=== PATIENT | female | born 1940 | race Two or more races ===

== ENCOUNTER 2016-09-13 10:03 | Emergency (ER) | payer OTHER, MEDICAID ==
[~2016-09-13] VITALS: Ht 149.9 cm; Wt 52.6 kg
[~2016-09-13 10:03] MED LIST: ALEN70TA55; HYDR25TA4; METH2.5T3; OMEPRAZOLE CAP 20MG; POTA-167; SIMV-8; TRAM50TA2
[2016-09-13 10:12] VITALS: BP 140/55
== END 2016-09-13 12:46 | disposition home or self-care (01) ==
LOC: ER 10:03
DX: S76.012A Strain of muscle, fascia and tendon of left hip, initial encounter (principal); M17.12 Unilateral primary osteoarthritis, left knee; E78.5 Hyperlipidemia, unspecified; M19.90 Unspecified osteoarthritis, unspecified site; Z88.6 Allergy status to analgesic agent; W01.0XXA Fall on same level from slipping, tripping and stumbling without subsequent striking against object, initial encounter; Y93.01 Activity, walking, marching and hiking; Y99.8 Other external cause status; Y92.89 Other specified places as the place of occurrence of the external cause
CPT/HCPCS: 73502; 73562; 73610

== ENCOUNTER 2016-11-23 10:33 | Emergency (ER) | payer OTHER, MEDICAID ==
[~2016-11-23] VITALS: Ht 149.9 cm; Wt 532.1 kg
[2016-11-23 11:03] VITALS: BP 137/61
== END 2016-11-23 12:48 | disposition home or self-care (01) ==
LOC: ER 10:33
DX: L60.0 Ingrowing nail (principal); Z88.8 Allergy status to other drugs, medicaments and biological substances

== ENCOUNTER 2016-12-14 09:50 | Emergency (ER) | payer OTHER, MEDICAID ==
[~2016-12-14] VITALS: Ht 149.9 cm; Wt 54.9 kg
[2016-12-14 10:38] VITALS: BP 138/72
== END 2016-12-14 11:35 | disposition home or self-care (01) ==
LOC: ER 09:50
DX: L60.0 Ingrowing nail (principal); E78.5 Hyperlipidemia, unspecified; M19.90 Unspecified osteoarthritis, unspecified site; Z88.8 Allergy status to other drugs, medicaments and biological substances; Z79.899 Other long term (current) drug therapy
CPT/HCPCS: 11730

== ENCOUNTER 2017-02-22 16:09 | Emergency (ER) | payer OTHER, MEDICAID ==
[~2017-02-22] VITALS: Ht 149.9 cm; Wt 72.6 kg
[2017-02-22 17:26] VITALS: BP 130/54
== END 2017-02-22 17:52 | disposition home or self-care (01) ==
LOC: ER 16:09
DX: S01.81XA Laceration without foreign body of other part of head, initial encounter (principal); M19.90 Unspecified osteoarthritis, unspecified site; E78.5 Hyperlipidemia, unspecified; Z79.899 Other long term (current) drug therapy; Z88.8 Allergy status to other drugs, medicaments and biological substances; W01.0XXA Fall on same level from slipping, tripping and stumbling without subsequent striking against object, initial encounter; Y93.89 Activity, other specified; Y92.89 Other specified places as the place of occurrence of the external cause; Y99.8 Other external cause status
CPT/HCPCS: 12013

== ENCOUNTER 2017-11-22 16:30 | Emergency (ER) | payer OTHER, MEDICAID ==
[~2017-11-22] VITALS: Ht 149.9 cm; Wt 51.7 kg
[~2017-11-22 16:30] MED LIST changes: +ALEN1TAB32; -ALEN70TA55
[2017-11-22 16:55] VITALS: BP 126/69
[2017-11-22] MEDS ORDERED: TRIAMCINOLONE 40MG/ML 1ML VIAL IM ONE (19:15)
[2017-11-22] MEDS ORDERED: HYDROcodone-ACET 7.5/325MG TAB PO ONE (19:15)
== END 2017-11-22 19:25 | disposition home or self-care (01) ==
LOC: ER 16:32
DX: S80.02XA Contusion of left knee, initial encounter (principal); S00.83XA Contusion of other part of head, initial encounter; G44.209 Tension-type headache, unspecified, not intractable; M62.838 Other muscle spasm; Z88.8 Allergy status to other drugs, medicaments and biological substances; Z79.899 Other long term (current) drug therapy; W10.8XXA Fall (on) (from) other stairs and steps, initial encounter; Y93.89 Activity, other specified; Y99.8 Other external cause status; Y92.89 Other specified places as the place of occurrence of the external cause
CPT/HCPCS: 70450; 73564; 73630; 93005; 96372; 99284; J3301

== ENCOUNTER 2021-07-12 20:12 | Emergency (ER) | payer OTHER, MEDICAID ==
[~2021-07-12] VITALS: Ht 149.9 cm; Wt 51.3 kg
[~2021-07-12 20:12] MED LIST changes: -ALEN1TAB32; +ALEN70TA74; +METH2.5T; -METH2.5T3
[2021-07-12 20:25] VITALS: BP 143/68
[2021-07-12] MEDS ORDERED: COROSUS LEFT EAR (20:53)
== END 2021-07-12 22:52 | disposition home or self-care (01) ==
LOC: ER 20:12
DX: H60.92 Unspecified otitis externa, left ear (principal); E78.5 Hyperlipidemia, unspecified; Z88.8 Allergy status to other drugs, medicaments and biological substances

== ENCOUNTER 2021-07-24 14:39 | Emergency (ER) | payer OTHER, MEDICAID ==
[~2021-07-24] VITALS: Ht 154.9 cm; Wt 59.0 kg
[~2021-07-24 14:39] MED LIST changes: +COROSUS LEFT EAR
[2021-07-24 15:47] VITALS: BP 125/85
[2021-07-24] MEDS ORDERED: CIPR1SUS8 OT (16:02)
[2021-07-24] MEDS ORDERED: AMOX-277 PO (16:02)
[2021-07-24] MEDS ORDERED: LORATADINE 10 MG TAB PO ONE (16:15)
== END 2021-07-24 16:58 | disposition home or self-care (01) ==
LOC: ER 14:39
DX: H60.92 Unspecified otitis externa, left ear (principal); R21 Rash and other nonspecific skin eruption; E78.5 Hyperlipidemia, unspecified; Z79.899 Other long term (current) drug therapy; Z79.1 Long term (current) use of non-steroidal anti-inflammatories (NSAID); Z88.8 Allergy status to other drugs, medicaments and biological substances

== ENCOUNTER 2021-11-12 12:10 | Emergency (ER) | payer OTHER, MEDICAID ==
[~2021-11-12 12:10] MED LIST changes: +AMOX-277 PO; +CIPR1SUS8 OT
== END 2021-11-12 12:57 | disposition left against medical advice (07) ==
LOC: ER 12:10
DX: H92.03 Otalgia, bilateral (principal); Z53.21 Procedure and treatment not carried out due to patient leaving prior to being seen by health care provider

== ENCOUNTER 2024-08-14 12:34 | Emergency (ER) | payer OTHER, MEDICAID ==
[~2024-08-14] VITALS: Ht 149.9 cm; Wt 41.7 kg
[~2024-08-14 12:34] MED LIST changes: -AMOX-277 PO; +AMOX875T4 PO; -POTA-167; +POTA-211; -SIMV-8; +SIMV20TA20
[2024-08-14 14:06] LABS: Urine Bacteria FEW /hpf (None Seen); Urine Blood Negative /uL (Negative); Urine Clarity Clear (Clear); Urine Color Light-Yellow (Yellow); Urine Protein, UAD Negative (Negative); Urine Specific Gravity 1.017 (1.001-1.035); Urine Squamous Epithelial Cell FEW /hpf (<5); Urine Urobilinogen Normal (Negative); Urine WBC 1 /HPF (0-5); Urine pH 6.5 (5.0-9.0)
--- NOTE | 2024-08-14 14:59 | ED.PDOC ---
History of Present Illness HPI Comments 84-year-old female presents to the ER with prior medical history of arthritis, high lipids and the chief complaint of urinary. Patient reports on having infection urine which has cleared now but was informed that she has a a bladder from now. Patient has frequency as well as burning during urination. Denies chills, fever, N/V/D, SOB, CP. No other associated symptoms, modifiers, recent injuries or sick contacts present at this time. Chief Complaint: Urinary Time Seen by MD: 14:00 Primary Care Provider: STEPHEN Reviewed Notes: Nurses Notes, Medications, Allergies Allergies: Coded Allergies: Naproxen (Verified Allergy, Unknown, 09/13/16) Home Meds Active Scripts Amoxicillin & Pot Clavulanate (Amoxicillin/Potassium Cla) 875 Mg Tab, 1 TAB PO BID for 5 Days, #10 TAB 0 Refills Prov:MERA MARTINEZ 07/24/21 Ciprofloxacin-Dexamethasone (Ciprofloxacin/Dexamethaso 0.3-0.1 %) 1 Tawnya Tawnya, 1 TAWNYA OT BID for 10 Days, #10 ML 0 Refills 4 drops twice a day for 10 days Prov:MERA MARTINEZ 07/24/21 Hbqgcfju-Fgsmjhpzu-Ha (Otic) (Cortisporin Otic Susp) [address], 4 DROP LEFT EAR TID for 7 Days, #10 ML Prov:SANDEEP GAN DO 07/12/21 Reported Medications [Omeprazole Cap 20MG] No Conflict Check 03/21/12 [Tramadol Hcl50 Mg] (Tramadol Hcl) 50 MG TAB No Conflict Check, MG 03/21/12 [Klor-Con 1010 Meq] (Klor-Con 10) 10 MEQ TAB No Conflict Check, MEQ 03/21/12 [Rvqiovgkcqjcwlg28 Mg] (Hydrochlorothiazide) 25 MG TAB No Conflict Check, MG 03/21/12 [Alendronate Sod70 Mg] (Alendronate Sodium) 70 MG TAB No Conflict Check, MG 03/21/12 [Methotrexate2.5 Mg] (Methotrexate) 2.5 MG TAB No Conflict Check, MG 03/21/12 [Rtqhuyhyzfh98 Mg] (Simvastatin) 20 MG TAB No Conflict Check, MG 03/21/12 Information Source: Patient Mode of Arrival: Ambulatory Severity: Moderate Timing: Days Duration: Since onset, Days Prehospital treatment: None Past Medical History PAST MEDICAL HISTORY: Arthritis, High Lipids Surgical History: Denies all surgeries DIRECTOR OF GLOBAL SALES History: No Pertinent DIRECTOR OF GLOBAL SALES History Family History Family History: Reviewed,noncontributory to illness, Unknown Social History Smoker: Non-Smoker Alcohol: Denies ETOH Use Drugs: Denies Drug Use Lives In: Home Constitutional: denies: chills, diaphoresis, fatigue, fever, malaise, sweats, weakness, others EENTM: denies: blurred vision, double vision, ear bleeding, ear discharge, ear drainage, ear pain, ear ringing, eye pain, eye redness, hearing loss, mouth pain, mouth swelling, nasal discharge, nose bleeding, nose congestion, nose pain, photophobia, tearing, throat pain, throat swelling, voice changes, others Respiratory: denies: cough, hemoptysis, orthopnea, SOB at rest, shortness of breath, SOB with excertion, stridor, wheezing, others Cardiovascular: denies: chest pain, dizzy spells, diaphoresis, Dyspnea on exertion, edema, irregular heart beat, left arm pain, lightheadedness, palpitations, PND, syncope, others Gastrointestinal: denies: abdomen distended, abdominal pain, blood streaked bowels, constipated, diarrhea, dysphagia, difficulty swallowing, hematemesis, melena, nausea, poor appetite, poor fluid intake, rectal bleeding, rectal pain, vomiting, others Genitourinary: reports: burning, frequency; denies: abnormal vagina bleeding, dyspareunia, dysuria, flank pain, hematuria, incontinence, pain, , vagina discharge, urgency, others Neurological: denies: dizziness, fainting, headache, left sided numbness, left sided weakness, numbness, paresthesia, pre-existing deficit, right sided numbness, right sided weakness, seizure, speech problems, tingling, tremors, weakness, others Musculoskeletal: denies: back pain, gout, joint pain, joint swelling, muscle pain, muscle stiffness, neck pain, others Integumetry: denies: bruises, change in color, change in hair/nails, dryness, laceration, lesions, lumps, rash, wounds, others Allergic/Immunocompromised: denies: Difficulty Healing, Frequent Infections, Hives, Itching, others Hematologic/Lymphatic: denies: anemia, blood clots, easy bleeding, easy bruising, swollen glands, others Endocrine: denies: excessive hunger, excessive sweating, excessive thirst, excessive urination, flushing, intolerance to cold, intolerance to heat, unexplained weight gain, unexplained weight loss, others Psychiatric: denies: anxiety, bipolar disorder, depression, hopeless, panic disorder, schizophrenia, sleepless, suicidal, others All Other Systems: Reviewed and Negative Physical Exam General Appearance: No Apparent Distress, Normal HEENT: Normal ENT Inspection, Pharynx Normal, TMs Normal Neck: Full Range of Motion, Non-Tender, Normal, Normal Inspection Respiratory: Chest Non-Tender, Lungs Clear, No Accessory Muscle Use, No Respiratory Distress, Normal Breath Sounds Cardiovascular: No Edema, No JVD, No Murmur, No Gallop, Normal Peripheral Pulses, Regular Rate/Rhythm Breast Exam: Deferred Gastrointestinal: No Organomegaly, Non Tender, No Pulsatile Mass, Normal Bowel Sounds, Soft Genitalia: Deferred Pelvic: Deferred Rectal: Deferred Extremities: No calf tenderness, Normal capillary refill, Normal inspection, Normal range of motion, Non-tender, No pedal edema Musculoskeletal : Apperance: Normal Neurologic: Alert, 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 Was a procedure done?: No Differential Dx Considerations may include: uti, vaginal yeast infection, dysuria X-Ray, Labs, Meds, VS Vital Signs Date Time Temp Pulse Resp B/P (MAP) Pulse Ox O2 Delivery O2 Flow Rate FiO2 08/14/24 16:57 98.5 90 14 149/58 (88) 97 98.5 08/14/24 13:08 98.0 104 13 135/67 (89) 96 98.0 Lab Test 08/14/24 13:13 Range/Units Urine Color Light-yellow Yellow Urine Clarity Clear Clear Urine pH 6.5 5.0-9.0 Urine Specific [place] 1.017 1.001-1.035 Urine Protein Negative Negative Urine Ketones Negative Negative Urine Blood Negative Negative /uL Urine Nitrite Negative Negative Urine Bilirubin Negative Negative Urine Urobilinogen Normal Negative mg/dL Urine Leukocyte Esterase 1+ Negative /uL Urine RBC 1 0 - 4 /hpf Urine Microscopic WBC 1 0-5 /HPF Urine Squamous Epithelial Cells Few <5 /hpf Urine Bacteria Few H None Seen /hpf Urine Glucose Normal Normal mg/dL Time of 1ST Reevaluation: 14:30 Reevaluation 1ST: Unchanged Patient Education/Counseling: Diagnosis, Treatment, Prognosis Family Education/Counseling: No Family Present Departure 1 Departure Time of Disposition: 17:29 Impression: Primary Impression: Cystitis Disposition: 01 HOME / SELF CARE / HOMELESS Condition: Good e-Prescriptions Cephalexin Monohydrate (Cephalexin) 500 Mg Tab 1 TAB PO QID, #40 TAB Prov: MAGALI JALLOH MD 08/14/24 Discharged With: Self Critical Care Note Critical Care Time?: No Stability Stability form required: No I personally scribed for MAGALI JALLOH MD ([email or web address]) on 08/14/24 at 14:59. Electronically submitted by Nick Patel ([email or web address]). MAGALI JALLOH MD August 14, 2024 14:59
[2024-08-14 16:57] VITALS: BP 149/58; TEMP 98.5
[2024-08-14] MEDS ORDERED: CEPH500T PO (17:29)
[2024-08-14] MEDS: CEPHALEXIN 250 MG CAP PO ONE (18:34)
[2024-08-14 18:37] VITALS: PULSE 90; RESP 20; O2SAT 97
== END 2024-08-14 18:38 | disposition home or self-care (01) ==
LOC: ER 12:38
DX: N30.90 Cystitis, unspecified without hematuria (principal); M19.90 Unspecified osteoarthritis, unspecified site; E78.5 Hyperlipidemia, unspecified; Z79.899 Other long term (current) drug therapy; Z88.6 Allergy status to analgesic agent
CPT/HCPCS: 81001

== ENCOUNTER 2024-11-11 19:22 | Inpatient (IN) | payer OTHER, MEDICAID ==
[~2024-11-11] VITALS: Ht 149.9 cm; Wt 45.7 kg
[~2024-11-11 19:22] MED LIST changes: +ALEN70TA74 PO; +ATOR40TA52 PO; +CEPH500T PO; +CHOL50007 PO; +CYAN50002 SL; +FOLI-119 PO; +HYDR-3682 PO; +HYDR25TA5 PO; +MELO7.5T7 PO; +OMEP1CAP70 PO; +POTA-220 PO
--- NOTE | 2024-11-11 20:20 | ED.PDOC ---
History of Present Illness HPI Comments 84-year-old female came to ER with a fall injury. Patient states she has been having episodes of nausea, vomiting and diarrhea. She feels weak and dehydrated, and she accidentally slipped, and fell hitting the back of her head. Denies any loss of consciousness. Upon arrival blood pressure was 100/44 mm Hg Chief Complaint: Fall Injury Time Seen by MD: 20:19 Primary Care Provider: STEPHEN Reviewed Notes: Nurses Notes Allergies: Coded Allergies: Naproxen (Verified Allergy, Unknown, 09/13/16) Home Meds Active Scripts Cephalexin Monohydrate (Cephalexin) 500 Mg Tab, 1 TAB PO QID, #40 TAB Prov:MAGALI JALLOH MD 08/14/24 Amoxicillin & Pot Clavulanate (Amoxicillin/Potassium Cla) 875 Mg Tab, 1 TAB PO BID for 5 Days, #10 TAB 0 Refills Prov:MERA MARTINEZ 07/24/21 Ciprofloxacin-Dexamethasone (Ciprofloxacin/Dexamethaso 0.3-0.1 %) 1 Tawnya Tawnya, 1 TAWNYA OT BID for 10 Days, #10 ML 0 Refills 4 drops twice a day for 10 days Prov:MERA MARTINEZ 07/24/21 Dnukpfsh-Ellrdboot-Yp (Otic) (Cortisporin Otic Susp) [address], 4 DROP LEFT EAR TID for 7 Days, #10 ML Prov:SANDEEP GAN DO 07/12/21 Reported Medications [Omeprazole Cap 20MG] No Conflict Check 03/21/12 [Tramadol Hcl50 Mg] (Tramadol Hcl) 50 MG TAB No Conflict Check, MG 03/21/12 [Klor-Con 1010 Meq] (Klor-Con 10) 10 MEQ TAB No Conflict Check, MEQ 03/21/12 [Xprmvyobiicjmmf26 Mg] (Hydrochlorothiazide) 25 MG TAB No Conflict Check, MG 03/21/12 [Alendronate Sod70 Mg] (Alendronate Sodium) 70 MG TAB No Conflict Check, MG 03/21/12 [Methotrexate2.5 Mg] (Methotrexate) 2.5 MG TAB No Conflict Check, MG 03/21/12 [Fpgrejmofqu88 Mg] (Simvastatin) 20 MG TAB No Conflict Check, MG 03/21/12 Information Source: Patient Mode of Arrival: Wheelchair Severity: Moderate Timing: Hours Duration: Since onset Past Medical History PAST MEDICAL HISTORY: Arthritis, High Lipids Surgical History: Denies all surgeries DEATH CLEARANCE COORDINATOR History: No Pertinent DEATH CLEARANCE COORDINATOR History Family History Family History: Reviewed,noncontributory to illness, Unknown Social History Smoker: Non-Smoker Alcohol: Denies ETOH Use Drugs: Denies Drug Use Lives In: Home Constitutional: reports: weakness; denies: chills, diaphoresis, fatigue, fever, malaise, sweats, others EENTM: denies: blurred vision, double vision, ear bleeding, ear discharge, ear drainage, ear pain, ear ringing, eye pain, eye redness, hearing loss, mouth pain, mouth swelling, nasal discharge, nose bleeding, nose congestion, nose pain, photophobia, tearing, throat pain, throat swelling, voice changes, others Respiratory: denies: cough, hemoptysis, orthopnea, SOB at rest, shortness of breath, SOB with excertion, stridor, wheezing, others Cardiovascular: denies: chest pain, dizzy spells, diaphoresis, Dyspnea on exertion, edema, irregular heart beat, left arm pain, lightheadedness, palpitations, PND, syncope, others Gastrointestinal: reports: diarrhea, nausea, vomiting Genitourinary: denies: abnormal vagina bleeding, burning, dyspareunia, dysuria, flank pain, frequency, hematuria, incontinence, pain, , vagina discharge, urgency, others Neurological: reports: headache; denies: dizziness, fainting, left sided numbness, left sided weakness, numbness, paresthesia, pre-existing deficit, right sided numbness, right sided weakness, seizure, speech problems, tingling, tremors, weakness, others Musculoskeletal: denies: back pain, gout, joint pain, joint swelling, muscle pain, muscle stiffness, neck pain, others Integumetry: denies: bruises, change in color, change in hair/nails, dryness, laceration, lesions, lumps, rash, wounds, others Allergic/Immunocompromised: denies: Difficulty Healing, Frequent Infections, Hives, Itching, others Hematologic/Lymphatic: denies: anemia, blood clots, easy bleeding, easy bruising, swollen glands, others Endocrine: denies: excessive hunger, excessive sweating, excessive thirst, excessive urination, flushing, intolerance to cold, intolerance to heat, unexplained weight gain, unexplained weight loss, others Psychiatric: denies: anxiety, bipolar disorder, depression, hopeless, panic disorder, schizophrenia, sleepless, suicidal, others Physical Exam General Appearance: No Apparent Distress, Normal HEENT: Normal ENT Inspection, Pharynx Normal, TMs Normal Neck: Full Range of Motion, Non-Tender, Normal, Normal Inspection Respiratory: Chest Non-Tender, Lungs Clear, No Accessory Muscle Use, No Respiratory Distress, Normal Breath Sounds Cardiovascular: No Edema, No JVD, No Murmur, No Gallop, Normal Peripheral Pulses, Regular Rate/Rhythm Breast Exam: Deferred Gastrointestinal: No Organomegaly, Non Tender, No Pulsatile Mass, Normal Bowel Sounds, Soft Genitalia: Deferred Pelvic: Deferred Rectal: Deferred Extremities: No calf tenderness, Normal capillary refill, Normal inspection, Normal range of motion, Non-tender, No pedal edema Musculoskeletal : Apperance: Normal Neurologic: Alert, 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 Was a procedure done?: No Differential Dx Considerations may include: Anemia, electrolyte imbalance, dehydration, hypotension, head injury, gastroenteritis X-Ray, Labs, Meds, VS Vital Signs Date Time Temp Pulse Resp B/P (MAP) Pulse Ox O2 Delivery O2 Flow Rate FiO2 11/11/24 19:24 98.2 91 16 100/44 97 98.2 Lab Test 11/11/24 20:48 11/11/24 20:13 Range/Units White Blood Count 7.7 4.4-10.8 10^3/uL Red Blood Count 4.05 4.0-5.20 10^6/uL Hemoglobin 12.8 12.2-16.2 g/dL Hematocrit 37.0 36.0-46.0 % Mean Corpuscular Volume 91.5 80.0-100.0 fL Mean Corpuscular Hemoglobin 31.6 28.0-32.0 pg Mean Corpuscular Hemoglobin Concent 34.6 32.0-36.0 g/dL Red Cell Distribution Width 13.8 11.8-14.3 % Platelet Count 210 140-450 10^3/uL Mean Platelet Volume 7.9 6.9-10.8 fL Neutrophils (%) (Auto) 84.2 H 37.0-80.0 % Lymphocytes (%) (Auto) 7.2 L 10.0-50.0 % Monocytes (%) (Auto) 8.4 0.0-12.0 % Eosinophils (%) (Auto) 0.0 0.0-7.0 % Basophils (%) (Auto) 0.2 0.0-2.0 % Neutrophils # (Auto) 6.5 1.6-8.6 10 ^3/uL Lymphocytes # (Auto) 0.6 0.4-5.4 10 ^3/uL Monocytes # (Auto) 0.6 0-1.3 10 ^3/uL Eosinophils # (Auto) 0 0-0.8 10 ^3/uL Basophils # (Auto) 0 0-0.2 10 ^3/uL Nucleated Red Blood Cells 0.0 % Sodium Level 136 136-145 mmol/L Potassium Level 2.7 L 3.5-5.1 mmol/L Chloride Level 98 98-107 mmol/L Carbon Dioxide Level 28 20-31 mmol/L Anion Gap 10 5-15 Blood Urea Nitrogen 17 9-23 mg/dL Creatinine 0.67 0.550-1.02 mg/dL Glomerular Filtration Rate Calc 86 >90 mL/min BUN/Creatinine Ratio 25.4 H 10.0-20.0 Serum Glucose 100 74-106 mg/dL Calcium Level 9.4 8.7-10.4 mg/dL Magnesium Level 1.8 1.6-2.6 mg/dL Total Bilirubin 1.9 H 0.2-1.0 mg/dL Aspartate Amino Transferase (AST) 36 13-40 U/L Alanine Aminotransferase (ALT) 35 7-40 U/L Alkaline Phosphatase 43 L 46-116 U/L Total Protein 7.1 5.7-8.2 g/dL Albumin 4.5 3.2-4.8 g/dL Lipase 33 12-53 U/L Urine Color Yellow Yellow Urine Clarity Clear Clear Urine pH 6.0 5.0-9.0 Urine Specific [place] 1.027 1.001-1.035 Urine Protein Trace H Negative Urine Ketones Negative Negative Urine Blood Negative Negative /uL Urine Nitrite Negative Negative Urine Bilirubin Negative Negative Urine Urobilinogen Normal Negative mg/dL Urine Leukocyte Esterase 3+ Negative /uL Urine RBC 5 0 - 4 /hpf Urine Microscopic WBC 30 H 0-5 /HPF Urine Squamous Epithelial Cells Few <5 /hpf Urine Bacteria Few H None Seen /hpf Urine Glucose Normal Normal mg/dL Time of 1ST Reevaluation: 20:17 Reevaluation 1ST: Unchanged Patient Education/Counseling: Diagnosis, Treatment Family Education/Counseling: No Family Present SEPSIS Sepsis Screen Date sepsis recognized/suspect: Nov 11, 2024 Time Sepsis recognized/suspect: 1923 Recent Procedure: No On Antibiotic Therapy: No Respiratory Rate >20: No Heart Rate >90: No Temp<36 C (96.8 F) or >38.3 C: No SBP <90 or MAP <65 mmHG: No New Acute Mental Status Change: No Is the patient on CPAP, BIPAP,: No Physician Orders Ct Ab Pel Wo Con-No Oral Or Iv (11/11/24 20:06) Electrocardigram (11/11/24 20:06) Head Without Contrast (11/11/24 20:06) Cervical Without Contrast (11/11/24 20:06) Lactic Acid W/ Reflex Order (11/11/24 22:19) Blood Culture (11/11/24 22:19) Ceftriaxone Ivpb Rocephin (11/11/24 22:30) Vital Signs Date Time Temp Pulse Resp B/P (MAP) Pulse Ox O2 Delivery O2 Flow Rate FiO2 11/11/24 19:24 98.2 91 16 100/44 97 98.2 Laboratory Tests Test 11/11/24 20:48 White Blood Count 7.7 10^3/uL (4.4-10.8) Departure 1 Departure Time of Disposition: 22:20 Impression: Primary Impression: Nausea vomiting and diarrhea Additional Impressions: Dehydration UTI (urinary tract infection) Hypokalemia Disposition: ADMITTED INPATIENT Admit to: Med Surg Condition: Guarded Comments Patient with nausea and vomiting and diarrhea now with some low blood pressure noted. Patient was given IV fluids. CT of the head and cervical spine show no obvious acute pathology. There is some cortical irregularity of C1 but patient is not particularly tender in this area so I doubt there is any acute fracture there. On lab review patient has hypokalemia 2.7. Also UTI with 3+ leukocytes. Patient was given IV Rocephin antibiotics and Zofran for nausea. Patient will need to be admitted for UTI and intractable vomiting and diarrhea with dehydration and hypokalemia Critical Care Note Critical Care Time?: Yes (35 min-critical care time only) Critical care comment: Total critical care time: Approximately 36 minutes Due to a high probability of clinically significant, life threatening deterioration, the patient required my highest level of preparedness to intervene emergently and I personally spent this critical care time directly and personally managing the patient. This critical care time included obtaining a history; examining the patient; pulse oximetry; ordering and review of studies; arranging urgent treatment with development of a management plan; evaluation of patient's response to treatment; frequent reassessment; and, discussions with other providers. This critical care time was performed to assess and manage the high probability of imminent, life-threatening deterioration that could result in multi-organ failure. It was exclusive of separately billable procedures and treating other patients. Stability Stability form required: No Heart Score Heart Score: Heart Score Response (Comments) Value History N/A 0 EKG N/A 0 Age N/A 0 Risk Factors N/A 0 Troponin N/A 0 Total 0 I personally scribed for TOY JOSUE MD ([email or web address]) on 11/11/24 at 20:20. Electronically submitted by Tripp Gibson ([email or web address]). TOY JOSUE MD Nov 11, 2024 20:20
--- NOTE | 2024-11-11 21:01 | DVH ---
EXAM: CT HEAD WITHOUT CONTRAST INDICATION: fall injury TECHNIQUE: CT images of the head were obtained without administration of IV contrast. CT scans at [facility] facility use dose modulation, iterative reconstruction, and/or weight based dosing when appropriate to reduce radiation dose to as low as reasonably achievable. COMPARISON: None FINDINGS: PARENCHYMA: No acute hemorrhage. There is no mass effect, midline shift, or herniation. There is pres ervation of the [place] white differentiation. Mild scattered hypoattenuation along the periventricular, centrum semiovale, and deep white matter tracts, which are nonspecific however statistically most li ramez represent chronic microvascular ischemic change. VENTRICLES: No hydrocephalus. EXTRA-AXIAL SPACES: No extra-axial fluid collections. OTHER: The bony structures are intact. Visualized portions of the paranasal sinuses and mastoid air cells are clear. IMPRESSION: 1. No CT evidence of an acute intracranial abnormality.
--- NOTE | 2024-11-11 21:06 | DVH ---
EXAM: CT CERVICAL WITHOUT CONTRAST INDICATION: pain / fall injury TECHNIQUE: Non contrast axial images of the cervical spine have been obtained with coronal and sagitt al reformatted images. CT scans at this facility use dose modulation, iterative reconstruction, and/o r weight based dosing when appropriate to reduce radiation dose to as low as reasonably achievable. COMPARISON: None FINDINGS: ANATOMY: Cervical lordosis is maintained. VERTEBRAL BODIES: The vertebral bodies are normal in height and alignment. The dens is intact, the la teral masses of C1 are normally aligned, and the atlantodental interval is normal for age. Question n ondisplaced fracture left posterolateral lamina of C1 however the margins are well corticated (3-20). Imaging finding may be chronic. SPINAL CANAL: No significant spinal canal stenosis. INTERVERTEBRAL DISCS: No CT findings to suggest traumatic disc herniation or acute hematoma. SOFT TISSUES: There is no prevertebral soft tissue swelling. OTHER: Indeterminate airspace opacity with adjacent pleural tethering in the posterior left upper lob e adjacent to the left major fissure measuring 1.2 x 2.5 cm. Prior healed right posterior upper rib f ractures. IMPRESSION: 1. Question nondisplaced fracture left posterolateral lamina of C1 however the margins are well corti cated. Correlate with clinical exam for level of point tenderness. 2. Prior healed right posterior upper rib fractures.
[2024-11-11 21:14] LABS: Hematocrit 37.0 % (36.0-46.0); Hemoglobin 12.8 g/dL (12.2-16.2); Mean Corpuscular Hemoglobin 31.6 pg (28.0-32.0); Mean Corpuscular Volume 91.5 fL (80.0-100.0); Nucleated Red Blood Cells % 0.0 %
[2024-11-11 21:22] LABS: Urine Protein, UAD TRACE (Negative)
[2024-11-11 21:25] LABS: Alanine Aminotransferase 35 U/L (7-40); Albumin 4.5 g/dL (3.2-4.8); Anion Gap 10 (5-15); BUN/Creatinine Ratio 25.4 (10.0-20.0); Blood Urea Nitrogen 17 mg/dL (9-23); Calcium 9.4 mg/dL (8.7-10.4); Carbon Dioxide 28 mmol/L (20-31); Chloride 98 mmol/L (98-107); Glucose 100 mg/dL (74-106); Magnesium 1.8 mg/dL (1.6-2.6); Total Protein 7.1 g/dL (5.7-8.2)
--- NOTE | 2024-11-11 21:26 | DVH ---
Exam: CT CT AB PEL WO CON-NO ORAL OR IV History: vomiting, diarrhea Comparison Study: None TECHNIQUE: Multidetector CT of the abdomen and pelvis was performed from lung bases to pubic symphysi s. Imaging was performed without IV contrast. Axial, coronal, and sagittal multiplanar reformats were obtained from the axial data set by the technologist. RADIATION DOSE: DLP 329.08 mGy.cm; CTDI vol 6.27 mGy. Findings: Limited evaluation given noncontrast technique. Lungs: The lung bases are clear. Heart: No cardiomegaly or pericardial effusion. Liver: Unremarkable. Gallbladder: Unremarkable. Spleen: Unremarkable Pancreas: Unremarkable Adrenals: Unremarkable Kidneys: Unremarkable GI tract: Large paraesophageal hernia. Air-fluid levels in the bowel. Unremarkable : Unremarkable. Vasculature: Mild aortoiliac atherosclerosis. Lymphadenopathy: Absent Peritoneum: No ascites Musculoskeletal: Moderate multilevel degenerative changes of the thoracolumbar spine. Bilateral tota l hip arthroplasties. Soft tissues: Unremarkable Impression: 1. Limited evaluation given noncontrast technique. 2. No definite acute abdominopelvic abnormalities. 3. Air-fluid levels in the bowel. Consistent with history of diarrhea. 4. Large paraesophageal hernia.
[2024-11-11 21:28] LABS: Alkaline Phosphatase 43 U/L (46-116); Bilirubin, Total 1.9 mg/dL (0.2-1.0); Potassium 2.7 mmol/L (3.5-5.1); Sodium 136 mmol/L (136-145)
[2024-11-11 21:39] LABS: Lipase 33 U/L (12-53)
[2024-11-11] MEDS ORDERED: ONDANSETRON HCL 4 MG/2 ML VIAL IV PRN (22:45)
[2024-11-11] MEDS ORDERED: HYDROcodone-ACET 5/325MG TAB PO PRN (22:45)
[2024-11-11] MEDS: SODIUM CHLORIDE 0.9% 1,000 ML IV SCH (22:45)
[2024-11-11] MEDS ORDERED: DOCUSATE SOD 100 MG CAP PO PRN (22:45)
--- NOTE | 2024-11-11 23:41 | DVHHP2 ---
History of Present Illness Reason for Visit: Hypokalemia History of Present Illness The patient is a 84-year-old female with past medical history of arthritis, hypertension, and hyperlipidemia who presented to [facility] ED for evaluation of fall injury. Patient reports she had frequent falls a week before today when she accidentally slipped and fall, now with episodes of nausea, vomiting, diarrhea, and body pain. Patient was seen and evaluated in the ED, laboratory data shows WBC 7.7, platelets 210, sodium 136, potassium 2.7, BUN 17, creatinine 0.67, glucose 100, calcium 9.4, lipase 33, total bilirubin 1.9, blood pressure 100/54, pulse 90, temperature 98.2 F, O2 saturation 97% on room air. Urinalysis positive for urinary tract infection. Patient was started on IV antibiotic regimen Rocephin, please see medication orders section in the computer. On my assessment, patient denied chest pain, no headache, dizziness, no diaphoresis, no shortness of breath, no nausea, no vomiting, no fever, no chills. Patient was admitted for further evaluation and medical management. Past Medical History Arthritis, High Lipids, hypertension Past Surgical History Denies all surgeries Family History Reviewed, noncontributory to the management of this case. Past Social History The patient lives at home, denies smoking, alcohol or illicit drugs abuse. Review of Systems Constitutional: Yes: Weakness; No: Fever, Chills, Sweats, Malaise, Other Eyes: No: Pain, Vision change, Conjunctivae inflammation, Eyelid inflammation, Other, Redness ENT: No: Ear pain, Ear discharge, Nose pain, Nose discharge, Nose congestion, Mouth pain, Mouth swelling, Throat pain, Throat swelling, Other Respiratory: No: Cough, Dry, Shortness of breath, SOB with excertion, Wheezing, Hemoptysis, Pleuritic Pain, Sputum, Wheezing, Other Cardiovascular: No: Chest Pain, Palpitations, Orthopnea, Paroxysmal Noc. Dyspnea, Edema, Lt Headedness, Other Gastrointestinal: Nausea, Vomiting, Diarrhea; No: Abdominal Pain, Constipation, Melena, Hematochezia, Other Genitourinary: No Dysuria, No Frequency, No Incontinence, No Hematuria, No Retention, No Other Musculoskeletal: No: other, neck pain, shoulder pain, arm pain, back pain, hand pain, leg pain, foot pain Skin: No: Rash, Lesions, Jaundice, Bruising, Other Neurological: Other (Headache); No: Weakness, Numbness, Incoordination, Change in speech, Confusion, Seizures Allergies: Coded Allergies: Naproxen (Verified Allergy, Unknown, 09/13/16) Medications Current Medications Medications Dose Ordered Sig/Bakari Route Start Time Stop Time Status Last Admin Dose Admin Atorvastatin Calcium 20 mg HS PO 11/12/24 22:00 Ceftriaxone Sodium 50 ml @ 100 mls/hr DAILY@09 IV 11/12/24 22:00 Sodium Chloride 1,000 ml @ 60 mls/hr [id number] IV 11/11/24 22:45 Acetaminophen/ Hydrocodone Bitart 1 tab Q4HP PRN PO 11/11/24 22:45 Ondansetron HCl 4 mg Q4HP PRN IV 11/11/24 22:45 Docusate Sodium 100 mg BIDPRN PRN PO 11/11/24 22:45 Acetaminophen 650 mg Q6HP PRN PO 11/11/24 22:45 Alendronate Sodium 70 mg Q7D@0600 PO 11/18/24 06:00 Exam Vital Signs Vital Signs Date Time Temp Pulse Resp B/P (MAP) Pulse Ox O2 Delivery O2 Flow Rate FiO2 11/11/24 19:24 98.2 91 16 100/44 97 98.2 General Appearance: Alert, Oriented X3, Cooperative, No acute distress HEENT: Atraumatic, EOMI, Mucous membr. moist/pink Respiratory: Normal air movement Cardiovascular: Regular rate, Normal S1, Normal S2, No murmurs Abdominal: Normal bowel sounds, Soft, No tenderness, No hepatospenomegaly, No masses Extremities: No clubbing, No cyanosis, No edema, Normal pulses, No tenderness/swelling Skin: No rashes, No breakdown, No significant lesion Neuro: Normal speech, Normal tone, Sensation intact, Cranial nerves 3-12 NL, Reflexes 2+, Other (Generalized weakness) Psych/Mental Status: Mental status NL, Mood NL Labs/Xrays Labs Test 11/11/24 22:33 11/11/24 20:48 11/11/24 20:13 Range/Units Lactic Acid Level 1.0 0.4-2.0 mmol/L White Blood Count 7.7 4.4-10.8 10^3/uL Red Blood Count 4.05 4.0-5.20 10^6/uL Hemoglobin 12.8 12.2-16.2 g/dL Hematocrit 37.0 36.0-46.0 % Mean Corpuscular Volume 91.5 80.0-100.0 fL Mean Corpuscular Hemoglobin 31.6 28.0-32.0 pg Mean Corpuscular Hemoglobin Concent 34.6 32.0-36.0 g/dL Red Cell Distribution Width 13.8 11.8-14.3 % Platelet Count 210 140-450 10^3/uL Mean Platelet Volume 7.9 6.9-10.8 fL Neutrophils (%) (Auto) 84.2 H 37.0-80.0 % Lymphocytes (%) (Auto) 7.2 L 10.0-50.0 % Monocytes (%) (Auto) 8.4 0.0-12.0 % Eosinophils (%) (Auto) 0.0 0.0-7.0 % Basophils (%) (Auto) 0.2 0.0-2.0 % Neutrophils # (Auto) 6.5 1.6-8.6 10 ^3/uL Lymphocytes # (Auto) 0.6 0.4-5.4 10 ^3/uL Monocytes # (Auto) 0.6 0-1.3 10 ^3/uL Eosinophils # (Auto) 0 0-0.8 10 ^3/uL Basophils # (Auto) 0 0-0.2 10 ^3/uL Nucleated Red Blood Cells 0.0 % Sodium Level 136 136-145 mmol/L Potassium Level 2.7 L 3.5-5.1 mmol/L Chloride Level 98 98-107 mmol/L Carbon Dioxide Level 28 20-31 mmol/L Anion Gap 10 5-15 Blood Urea Nitrogen 17 9-23 mg/dL Creatinine 0.67 0.550-1.02 mg/dL Glomerular Filtration Rate Calc 86 >90 mL/min BUN/Creatinine Ratio 25.4 H 10.0-20.0 Serum Glucose 100 74-106 mg/dL Calcium Level 9.4 8.7-10.4 mg/dL Magnesium Level 1.8 1.6-2.6 mg/dL Total Bilirubin 1.9 H 0.2-1.0 mg/dL Aspartate Amino Transferase (AST) 36 13-40 U/L Alanine Aminotransferase (ALT) 35 7-40 U/L Alkaline Phosphatase 43 L 46-116 U/L Total Protein 7.1 5.7-8.2 g/dL Albumin 4.5 3.2-4.8 g/dL Lipase 33 12-53 U/L Urine Color Yellow Yellow Urine Clarity Clear Clear Urine pH 6.0 5.0-9.0 Urine Specific [place] 1.027 1.001-1.035 Urine Protein Trace H Negative Urine Ketones Negative Negative Urine Blood Negative Negative /uL Urine Nitrite Negative Negative Urine Bilirubin Negative Negative Urine Urobilinogen Normal Negative mg/dL Urine Leukocyte Esterase 3+ Negative /uL Urine RBC 5 0 - 4 /hpf Urine Microscopic WBC 30 H 0-5 /HPF Urine Squamous Epithelial Cells Few <5 /hpf Urine Bacteria Few H None Seen /hpf Urine Glucose Normal Normal mg/dL PATIENT: WILLIAM HURTADO ACCT: [id number] UNIT: [id number] : 1940 LOC: ER ROOM / BED: / AGE / SEX: 84 / F ADM STATUS: REG ER SERVICE 05 ORDERING PHYSICIAN: TOY JOSUE MD PROCEDURE(s): ABPL - CT AB PEL WO CON-NO ORAL OR IV REASON: vomiting, diarrhea ORDER NUMBER(s): [id number], ACCESSION NUMBER(s): [id number] Exam: CT CT AB PEL WO CON-NO ORAL OR IV History: vomiting, diarrhea Comparison Study: None TECHNIQUE: Multidetector CT of the abdomen and pelvis was performed from lung bases to pubic symphysis. Imaging was performed without IV contrast. Axial, coronal, and sagittal multiplanar reformats were obtained from the axial data set by the technologist. RADIATION DOSE: DLP 329.08 mGy.cm; CTDI vol 6.27 mGy. Findings: Limited evaluation given noncontrast technique. Lungs: The lung bases are clear. Heart: No cardiomegaly or pericardial effusion. Liver: Unremarkable. Gallbladder: Unremarkable. Spleen: Unremarkable Pancreas: Unremarkable Adrenals: Unremarkable Kidneys: Unremarkable GI tract: Large paraesophageal hernia. Air-fluid levels in the bowel. Unremarkable : Unremarkable. Vasculature: Mild aortoiliac atherosclerosis. Lymphadenopathy: Absent Peritoneum: No ascites Musculoskeletal: Moderate multilevel degenerative changes of the thoracolumbar spine. Bilateral total hip arthroplasties. Soft tissues: Unremarkable Impression: 1. Limited evaluation given noncontrast technique. 2. No definite acute abdominopelvic abnormalities. 3. Air-fluid levels in the bowel. Consistent with history of diarrhea. 4. Large paraesophageal hernia. ORDERING PHYSICIAN: TOY JOSUE MD PROCEDURE(s): CS2 - CERVICAL WITHOUT CONTRAST REASON: pain / fall injury ORDER NUMBER(s): [id number], ACCESSION NUMBER(s): [id number] EXAM: CT CERVICAL WITHOUT CONTRAST INDICATION: pain/fall injury TECHNIQUE: Non contrast axial images of the cervical spine have been obtained with coronal and sagittal reformatted images. CT scans at this facility use dose modulation, iterative reconstruction, and/or weight based dosing when appropriate to reduce radiation dose to as low as reasonably achievable. COMPARISON: None FINDINGS: ANATOMY: Cervical lordosis is maintained. VERTEBRAL BODIES: The vertebral bodies are normal in height and alignment. The dens is intact, the lateral masses of C1 are normally aligned, and the atlantodental interval is normal for age. Question nondisplaced fracture left posterolateral lamina of C1 however the margins are well corticated (3-20). Imaging finding may be chronic. SPINAL CANAL: No significant spinal canal stenosis. INTERVERTEBRAL DISCS: No CT findings to suggest traumatic disc herniation or acute hematoma. SOFT TISSUES: There is no prevertebral soft tissue swelling. OTHER: Indeterminate airspace opacity with adjacent pleural tethering in the posterior left upper lobe adjacent to the left major fissure measuring 1.2 x 2.5 cm. Prior healed right posterior upper rib fractures. IMPRESSION: 1. Question nondisplaced fracture left posterolateral lamina of C1 however the margins are well corticated. Correlate with clinical exam for level of point tenderness. 2. Prior healed right posterior upper rib fractures. ORDERING PHYSICIAN: TOY JOSUE MD PROCEDURE(s): HWOCT - HEAD WITHOUT CONTRAST REASON: fall injury ORDER NUMBER(s): [id number], ACCESSION NUMBER(s): [id number] EXAM: CT HEAD WITHOUT CONTRAST INDICATION: fall injury TECHNIQUE: CT images of the head were obtained without administration of IV contrast. CT scans at this facility use dose modulation, iterative reconstruction, and/or weight based dosing when appropriate to reduce radiation dose to as low as reasonably achievable. COMPARISON: None FINDINGS: PARENCHYMA: No acute hemorrhage. There is no mass effect, midline shift, or herniation. There is preservation of the [place] white differentiation. Mild scattered hypoattenuation along the periventricular, centrum semiovale, and deep white matter tracts, which are nonspecific however statistically most likely represent chronic microvascular ischemic change. VENTRICLES: No hydrocephalus. EXTRA-AXIAL SPACES: No extra-axial fluid collections. OTHER: The bony structures are intact. Visualized portions of the paranasal sinuses and mastoid air cells are clear. IMPRESSION: 1. No CT evidence of an acute intracranial abnormality. SEPSIS Sepsis Screen Date sepsis recognized/suspect: Nov 11, 2024 Time Sepsis recognized/suspect: 1923 Recent Procedure: No On Antibiotic Therapy: No Respiratory Rate >20: No Heart Rate >90: No Temp<36 C (96.8 F) or >38.3 C: No SBP <90 or MAP <65 mmHG: No New Acute Mental Status Change: No Is the patient on CPAP, BIPAP,: No Physician Orders Ct Ab Pel Wo Con-No Oral Or Iv (11/11/24 20:06) Electrocardigram (11/11/24 20:06) Head Without Contrast (11/11/24 20:06) Cervical Without Contrast (11/11/24 20:06) Blood Culture (11/11/24 22:19) Potassium Chl 20meq/100ml (11/11/24 22:30) Urine Bacterial Culture (11/11/24 22:38) Atorvastatin (Lipitor) (11/12/24 22:00) Ceftriaxone 1gm/50ml D5w (Rocephin) (11/12/24 22:00) * Orthopedic Consult (11/11/24 22:38) Allergies (11/11/24 22:38) Code Status (11/11/24 22:38) Sodium Chloride 0.9% (11/11/24 22:45) Oxygen Per Hour (11/11/24 22:38) Hydrocodone-Acet 5/325mg Tab (Sullivan 5/32 (11/11/24 22:45) Ondansetron Hcl (Zofran) (11/11/24 22:45) Docusate Sodium Capsule (Colace Capsule) (11/11/24 22:45) Fall Risk Precautions In Place QSHIFT (11/11/24 22:38) Complete Blood Count (11/12/24 04:00) Comprehensive Metabolic Panel (11/12/24 04:00) Cardiac Diet-2gna,Lofat,Lochol (11/12/24 Breakfast) Condition: Serious (11/11/24 22:38) Acetaminophen Tablet (Tylenol Tablet) (11/11/24 22:45) Maintain Bed Rest (11/11/24 22:38) Sequential Compression Device (11/11/24 ) Alendronate Sodium (Fosamax) (11/18/24 06:00) Vital Signs Date Time Temp Pulse Resp B/P (MAP) Pulse Ox O2 Delivery O2 Flow Rate FiO2 11/11/24 19:24 98.2 91 16 100/44 97 98.2 Laboratory Tests Test 11/11/24 20:48 11/11/24 22:33 White Blood Count 7.7 10^3/uL (4.4-10.8) Lactic Acid Level 1.0 mmol/L (0.4-2.0) Assessment/Plan Assessment/Plan Hypokalemia Fall with injury Dehydration UTI (urinary tract infection) Nausea vomiting and diarrhea Plan 1. Admit to telemetry unit 2. Breathing treatment 3. Pain control management 4. IV antibiotic management 5. Management of fluids and electrolytes 6. Consultation for hospitalist 7. Diagnostic test cervical spine CT 8. DVT prophylaxis-on SCDs 9. Repeat labs CBC, CMP in a.m. 10. Home medication reviewed and reconciled 11. Continue with current medical management 12. Treatment plan discussed with patient and RN. Patient verbalized understanding. Plan discussed with: Patient, Other (RN) My Orders Orders - JAMEY GODWIN DNP Procedure Category Date Status Time Urine Bacterial IRVING 11/11/24 In Process Culture 22:38 Atorvastatin (Lipitor) PHA 11/12/24 In Process 22:00 Ceftriaxone 1gm/50ml PHA 11/12/24 In Process D5w (Rocephin) 22:00 * Orthopedic Consult CONS 11/11/24 Transmitted 22:38 Allergies NEY 11/11/24 In Process 22:38 Code Status CODE 11/11/24 Transmitted 22:38 Sodium Chloride 0.9% PHA 11/11/24 In Process 22:45 Oxygen Per Hour RT 11/11/24 Transmitted 22:38 Hydrocodone-Acet PHA 11/11/24 In Process 5/325mg Tab (Sullivan 22:45 Ondansetron Hcl PHA 11/11/24 In Process (Zofran) 22:45 Docusate Sodium PHA 11/11/24 In Process Capsule (Colace 22:45 Fall Risk Precautions NEY 11/11/[address] 22:38 Complete Blood Count LAB 11/12/24 Verified 04:00 Comprehensive LAB 11/12/24 Verified Metabolic Panel 04:00 Cardiac DIET 11/12/24 Transmitted Diet-2gna,Lofat,Lochol Breakfast Condition: Serious NEY 11/11/24 In Process 22:38 Acetaminophen Tablet PHA 11/11/24 In Process (Tylenol Tablet) 22:45 Maintain Bed Rest NEY 11/11/24 In Process 22:38 Sequential NEY 11/11/24 In Process Compression Device Alendronate Sodium PHA 11/18/24 In Process (Fosamax) 06:00 Problem List: (1) Hypokalemia (2) Fall with injury (3) Dehydration (4) UTI (urinary tract infection) (5) Nausea vomiting and diarrhea Date of Service: Nov 11, 2024 Billing Provider: JAMEY GODWIN DNP Common Visit Codes: [id number] INP/OBS CARE (HIGH) JAMEY GODWIN DNP Nov 11, 2024 23:41
[2024-11-11] MEDS ORDERED: NITROGLYCERIN 0.4 MG SL TAB SL PRN (23:45)
[2024-11-11] MEDS ORDERED: MORPHINE SULFATE INJ 2 MG/ml SYRG IV PRN (23:45)
[2024-11-12] VITALS (8 sets, daily range): BP systolic 100–116; BP diastolic 57–68; PULSE 62–74; RESP 16–18; TEMP 96.8–97.8; O2SAT 95–98
[2024-11-12] MEDS: ACETAMINOPHEN 325 MG TAB PO PRN (01:15)
[2024-11-12] MEDS: SODIUM CHLORIDE 0.9% 1,000 ML IVB ONE (01:15)
[2024-11-12] MEDS: ONDANSETRON HCL 4 MG/2 ML VIAL IV ONE (01:15)
[2024-11-12] MEDS: POTASSIUM CHL 20MEQ/100ML 100 ML IV ONE (01:35)
[2024-11-12] MEDS: CEFTRIAXONE 2 GM/50 ML IV ONE (09:07)
[2024-11-12 09:54] LABS: Alanine Aminotransferase 26 U/L (7-40); Albumin 3.8 g/dL (3.2-4.8); Anion Gap 5 (5-15); BUN/Creatinine Ratio 21.3 (10.0-20.0); Bilirubin, Total 1.1 mg/dL (0.2-1.0); Blood Urea Nitrogen 13 mg/dL (9-23); Carbon Dioxide 27 mmol/L (20-31); Chloride 104 mmol/L (98-107); Glucose 86 mg/dL (74-106); Total Protein 6.0 g/dL (5.7-8.2)
[2024-11-12 09:55] LABS: Hematocrit 33.2 % (36.0-46.0); Hemoglobin 11.4 g/dL (12.2-16.2); Mean Corpuscular Hemoglobin 31.8 pg (28.0-32.0); Mean Corpuscular Volume 92.2 fL (80.0-100.0); Nucleated Red Blood Cells % 0.1 %
[2024-11-12 09:58] LABS: Alkaline Phosphatase 36 U/L (46-116); Calcium 8.2 mg/dL (8.7-10.4); Potassium 3.1 mmol/L (3.5-5.1); Sodium 136 mmol/L (136-145)
[2024-11-12] MEDS ORDERED: MAGN400T40 PO (15:04)
--- NOTE | 2024-11-12 16:36 | DVHPN2 ---
Subjective Overnight events noted. Patient is here for fall and LS nausea and vomiting and diarrhea. Changes from previous H/P or p: No Changes Eyes: No Pain, No Vision change, No Conjunctivae inflammation, No Eyelid inflammation, No Other, No Redness ENT: No Ear pain, No Ear discharge, No Nose pain, No Nose discharge, No Nose congestion, No Mouth pain, No Mouth swelling, No Throat pain, No Throat swelling, No Other Cardiovascular: No Chest Pain, No Palpitations, No Orthopnea, No Paroxysmal Noc. Dyspnea, No Edema, No Lt Headedness, No Other Respiratory: No Cough, No Dry, No Shortness of breath, No SOB with excertion, No Wheezing, No Hemoptysis, No Pleuritic Pain, No Sputum, No Other Gastrointestinal: Nausea, Vomiting; No Abdominal Pain; Diarrhea; No Constipation, No Melena, No Hematochezia, No Other Genitourinary: No Dysuria, No Frequency, No Incontinence, No Hematuria, No Retention, No Other Musculoskeletal: No other, No neck pain, No shoulder pain, No arm pain, No back pain, No hand pain, No leg pain, No foot pain Skin: No Rash, No Lesions, No Jaundice, No Bruising, No Other Objective Vitals Vital Signs Date Time Temp Pulse Resp B/P (MAP) Pulse Ox O2 Delivery O2 Flow Rate FiO2 11/12/24 13:00 97.1 74 16 116/60 (78) 96 97.1 11/12/24 04:32 Room Air* 0 21 Intake/Output Intake and Output 11/12/24 07:00 Intake Total 1100 ml Balance 1100 ml Intake Oral 0 ml IV Total 1100 ml Exam HEENT pupils are reactive Neck is supple CV is S1-S2 regular rate and rhythm Respiratory are clear GI positive bowel sound 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 Medications Current Medications Medications Dose Ordered Sig/Bakari Route Start Time Stop Time Status Last Admin Dose Admin Atorvastatin Calcium 20 mg HS PO 11/12/24 22:00 Ceftriaxone Sodium 50 ml @ 100 mls/hr DAILY@09 IV 11/12/24 22:00 Sodium Chloride 1,000 ml @ 60 mls/hr [id number] IV 11/11/24 22:45 Acetaminophen/ Hydrocodone Bitart 1 tab Q4HP PRN PO 11/11/24 22:45 Ondansetron HCl 4 mg Q4HP PRN IV 11/11/24 22:45 Docusate Sodium 100 mg BIDPRN PRN PO 11/11/24 22:45 Acetaminophen 650 mg Q6HP PRN PO 11/11/24 22:45 11/12/24 12:35 650 MG Alendronate Sodium 70 mg Q7D@0600 PO 11/18/24 06:00 Nitroglycerin 0.4 mg Q5MINP PRN SL 11/11/24 23:45 Morphine Sulfate 2 mg Q30M PRN IV 11/11/24 23:45 Laboratory Results Laboratory Tests 11/12/24 09:11 Chemistry Test 11/11/24 20:48 11/12/24 09:11 Albumin 4.5 g/dL (3.2-4.8) 3.8 g/dL (3.2-4.8) Calcium Level 9.4 mg/dL (8.7-10.4) 8.2 mg/dL (8.7-10.4) L Magnesium Level 1.8 mg/dL (1.6-2.6) Total Protein 7.1 g/dL (5.7-8.2) 6.0 g/dL (5.7-8.2) Lipid panel Test 11/11/24 20:48 Lipase 33 U/L (12-53) LFT Test 11/11/24 20:48 11/12/24 09:11 Alanine Aminotransferase (ALT) 35 U/L (7-40) 26 U/L (7-40) Alkaline Phosphatase 43 U/L (46-116) L 36 U/L (46-116) L Aspartate Amino Transferase (AST) 36 U/L (13-40) 31 U/L (13-40) Total Bilirubin 1.9 mg/dL (0.2-1.0) H 1.1 mg/dL (0.2-1.0) H Urinalysis Test 11/11/24 20:13 Urine Color Yellow (Yellow) Urine Clarity Clear (Clear) Urine pH 6.0 (5.0-9.0) Urine Specific [place] 1.027 (1.001-1.035) Urine Protein Trace (Negative) H Urine Ketones Negative (Negative) Urine Blood Negative /uL (Negative) Urine Nitrite Negative (Negative) Urine Bilirubin Negative (Negative) Urine Urobilinogen Normal mg/dL (Negative) Urine Leukocyte Esterase 3+ /uL (Negative) Urine RBC 5 /hpf (0 - 4) Urine Microscopic WBC 30 /HPF (0-5) H Urine Squamous Epithelial Cells Few /hpf (<5) Urine Bacteria Few /hpf (None Seen) H Urine Glucose Normal mg/dL (Normal) Assessment/Plan Assessment/Plan 84-year-old female who is here for mechanical fall and diarrhea found to have 1. Recurrent falls 2. Urinary tract infection 3. Nausea and vomiting diarrhea likely gastroenteritis resolved 4. Hypokalemia -diet as tolerated, replace electrolytes, PT evaluation and treatment Plan discussed with: Patient Date of Service: Nov 12, 2024 Billing Provider: ABRAM COKER MD Common Visit Codes: [id number] INP/OBS CARE(MOD) ABRAM COKER MD Nov 12, 2024 16:35
[2024-11-12] MEDS: ATORVASTATIN 20 MG TAB PO SCH (21:34)
[2024-11-13] VITALS (7 sets, daily range): BP systolic 120–147; BP diastolic 51–67; PULSE 57–72; RESP 16–18; TEMP 97.4–98.4; O2SAT 95–98
--- NOTE | 2024-11-13 15:43 | DVH ---
XY L SHOULDER 2+ VIEW XRAY INDICATION: left frogen shoulder TECHNICAL DATA: 2 views were obtained of the left shoulder. COMPARISON: None FINDINGS: There is no fracture or focal bone abnormality. The glenohumeral joint is degenerative. The acromiocl avicular joint appears degenerative. The humeral head is not high riding. Adjacent soft tissues are w ithin normal limits. Degenerative changes are noted involving the visualized spine. IMPRESSION: No acute fracture or dislocation of the left shoulder.
--- NOTE | 2024-11-13 17:21 | DVHPN2 ---
Subjective Patient is complaining of left shoulder decreased range of motion likely frozen shoulder. Changes from previous H/P or p: No Changes Eyes: No Pain, No Vision change, No Conjunctivae inflammation, No Eyelid inflammation, No Other, No Redness ENT: No Ear pain, No Ear discharge, No Nose pain, No Nose discharge, No Nose congestion, No Mouth pain, No Mouth swelling, No Throat pain, No Throat swelling, No Other Cardiovascular: No Chest Pain, No Palpitations, No Orthopnea, No Paroxysmal Noc. Dyspnea, No Edema, No Lt Headedness, No Other Respiratory: No Cough, No Dry, No Shortness of breath, No SOB with excertion, No Wheezing, No Hemoptysis, No Pleuritic Pain, No Sputum, No Other Gastrointestinal: Nausea, Vomiting; No Abdominal Pain; Diarrhea; No Constipation, No Melena, No Hematochezia, No Other Genitourinary: No Dysuria, No Frequency, No Incontinence, No Hematuria, No Retention, No Other Musculoskeletal: No other, No neck pain, No shoulder pain, No arm pain, No back pain, No hand pain, No leg pain, No foot pain Skin: No Rash, No Lesions, No Jaundice, No Bruising, No Other Objective Vitals Vital Signs Date Time Temp Pulse Resp B/P (MAP) Pulse Ox O2 Delivery O2 Flow Rate FiO2 11/13/24 13:00 97.5 62 16 138/51 (80) 96 97.5 11/13/24 08:00 Room Air* 0 21 Intake/Output Intake and Output 11/13/24 07:00 Intake Total 1910 ml Output Total 300 ml Balance 1610 ml Intake Oral 1800 ml IV Total 110 ml Output Urine Total 300 ml # Voids 2 Exam HEENT pupils are reactive Neck is supple CV is S1-S2 regular rate and rhythm Respiratory are clear GI positive bowel sound Extremity no edema [employer] no motor deficit Medications Current Medications Medications Dose Ordered Sig/Bakari Route Start Time Stop Time Status Last Admin Dose Admin Atorvastatin Calcium 20 mg HS PO 11/12/24 22:00 11/12/24 21:34 20 MG Sodium Chloride 1,000 ml @ 60 mls/hr [id number] IV 11/11/24 22:45 11/13/24 03:49 60 MLS/HR Acetaminophen/ Hydrocodone Bitart 1 tab Q4HP PRN PO 11/11/24 22:45 Ondansetron HCl 4 mg Q4HP PRN IV 11/11/24 22:45 Docusate Sodium 100 mg BIDPRN PRN PO 11/11/24 22:45 Acetaminophen 650 mg Q6HP PRN PO 11/11/24 22:45 11/13/24 09:22 650 MG Alendronate Sodium 70 mg Q7D@0600 PO 11/18/24 06:00 Nitroglycerin 0.4 mg Q5MINP PRN SL 11/11/24 23:45 Morphine Sulfate 2 mg Q30M PRN IV 11/11/24 23:45 Ceftriaxone Sodium 50 ml @ 100 mls/hr DAILY@09 IV 11/13/24 09:00 11/13/24 09:21 100 MLS/HR Laboratory Results Laboratory Tests 11/12/24 09:11 Urinalysis Test 11/11/24 20:13 Urine Color Yellow (Yellow) Urine Clarity Clear (Clear) Urine pH 6.0 (5.0-9.0) Urine Specific [place] 1.027 (1.001-1.035) Urine Protein Trace (Negative) H Urine Ketones Negative (Negative) Urine Blood Negative /uL (Negative) Urine Nitrite Negative (Negative) Urine Bilirubin Negative (Negative) Urine Urobilinogen Normal mg/dL (Negative) Urine Leukocyte Esterase 3+ /uL (Negative) Urine RBC 5 /hpf (0 - 4) Urine Microscopic WBC 30 /HPF (0-5) H Urine Squamous Epithelial Cells Few /hpf (<5) Urine Bacteria Few /hpf (None Seen) H Urine Glucose Normal mg/dL (Normal) Microbiology Microbiology Date/Time Source Procedure Growth Status 11/11/24 22:43 Blood Blood Culture - Preliminary NO GROWTH AFTER 24 HOURS OF INCUBATION. Resulted 11/11/24 20:13 Voided Urine Urine Culture - Preliminary Resulted Assessment/Plan Assessment/Plan 84-year-old female who is here for mechanical fall and diarrhea found to have 1. Recurrent falls 2. Urinary tract infection 3. Nausea and vomiting diarrhea likely gastroenteritis resolved 4. Hypokalemia 5. Left shoulder fall with a decreased range of motion suspect frozen shoulder -x-ray shoulder two views, pain meds as needed -check vitamin B12 folic acid TSH -diet as tolerated, replace electrolytes, PT evaluation and treatment Plan discussed with: Patient My Orders Orders - ABRAM COKER MD Procedure Category Date Status Time L Shoulder 2+ View XY 11/13/24 Resulted Xray 15:07 Thyroid Stimulating LAB 11/13/24 Logged Hormone 17:14 Vitamin B12 LAB 11/13/24 Logged 17:14 Folate (Folic Acid) LAB 11/13/24 Logged 17:14 Basic Metabolic Panel LAB 11/14/24 Verified 06:00 Complete Blood Count LAB 11/14/24 Verified 06:00 Magnesium LAB 11/14/24 Verified 06:00 Date of Service: Nov 13, 2024 Billing Provider: ABRAM COKER MD Common Visit Codes: [id number] INP/OBS CARE(MOD) ABRAM COKER MD Nov 13, 2024 17:21
[2024-11-14] VITALS (8 sets, daily range): BP systolic 124–145; BP diastolic 59–93; PULSE 55–67; RESP 17–19; TEMP 97–97.8; O2SAT 95–98
[2024-11-14 07:35] LABS: Hematocrit 33.5 % (36.0-46.0); Hemoglobin 11.9 g/dL (12.2-16.2); Mean Corpuscular Hemoglobin 32.6 pg (28.0-32.0); Mean Corpuscular Volume 91.9 fL (80.0-100.0); Nucleated Red Blood Cells % 0.0 %
[2024-11-14 07:40] LABS: Potassium 3.6 mmol/L (3.5-5.1); Sodium 142 mmol/L (136-145)
[2024-11-14 07:41] LABS: Anion Gap 6 (5-15); Carbon Dioxide 27 mmol/L (20-31)
[2024-11-14 07:47] LABS: BUN/Creatinine Ratio 18.0 (10.0-20.0); Glucose 81 mg/dL (74-106); Magnesium 1.9 mg/dL (1.6-2.6)
[2024-11-14 07:51] LABS: Blood Urea Nitrogen 9 mg/dL (9-23); Calcium 8.6 mg/dL (8.7-10.4); Chloride 109 mmol/L (98-107)
--- NOTE | 2024-11-14 17:06 | DVHDS2 ---
Discharge Summary Date of Admission Nov 11, 2024 at 23:38 Date of Discharge: Nov 14, 2024 Labs/Diagnostic Data: Laboratory Results Test 11/14/24 06:33 11/13/24 17:34 11/12/24 09:11 11/11/24 22:33 White Blood Count 5.4 10^3/uL (4.4-10.8) Red Blood Count 3.65 10^6/uL (4.0-5.20) Hemoglobin 11.9 g/dL (12.2-16.2) Hematocrit 33.5 % (36.0-46.0) Mean Corpuscular Volume 91.9 fL (80.0-100.0) Mean Corpuscular Hemoglobin 32.6 pg (28.0-32.0) Mean Corpuscular Hemoglobin Concent 35.4 g/dL (32.0-36.0) Red Cell Distribution Width 13.7 % (11.8-14.3) Platelet Count 175 10^3/uL (140-450) Mean Platelet Volume 7.8 fL (6.9-10.8) Neutrophils (%) (Auto) 45.1 % (37.0-80.0) Lymphocytes (%) (Auto) 41.3 % (10.0-50.0) Monocytes (%) (Auto) 12.6 % (0.0-12.0) Eosinophils (%) (Auto) 0.6 % (0.0-7.0) Basophils (%) (Auto) 0.4 % (0.0-2.0) Neutrophils # (Auto) 2.5 10 ^3/uL (1.6-8.6) Lymphocytes # (Auto) 2.3 10 ^3/uL (0.4-5.4) Monocytes # (Auto) 0.7 10 ^3/uL (0-1.3) Eosinophils # (Auto) 0 10 ^3/uL (0-0.8) Basophils # (Auto) 0 10 ^3/uL (0-0.2) Nucleated Red Blood Cells 0.0 % Sodium Level 142 mmol/L (136-145) Potassium Level 3.6 mmol/L (3.5-5.1) Chloride Level 109 mmol/L (98-107) Carbon Dioxide Level 27 mmol/L (20-31) Anion Gap 6 (5-15) Blood Urea Nitrogen 9 mg/dL (9-23) Creatinine 0.50 mg/dL (0.550-1.02) Glomerular Filtration Rate Calc 92 mL/min (>90) BUN/Creatinine Ratio 18.0 (10.0-20.0) Serum Glucose 81 mg/dL (74-106) Calcium Level 8.6 mg/dL (8.7-10.4) Magnesium Level 1.9 mg/dL (1.6-2.6) Thyroid Stimulating Hormone (TSH) 4.58 uIU/mL (0.55-4.78) Total Bilirubin 1.1 mg/dL (0.2-1.0) Aspartate Amino Transferase (AST) 31 U/L (13-40) Alanine Aminotransferase (ALT) 26 U/L (7-40) Alkaline Phosphatase 36 U/L (46-116) Total Protein 6.0 g/dL (5.7-8.2) Albumin 3.8 g/dL (3.2-4.8) Lactic Acid Level 1.0 mmol/L (0.4-2.0) Test 11/11/24 20:48 11/11/24 20:13 Lipase 33 U/L (12-53) Urine Color Yellow (Yellow) Urine Clarity Clear (Clear) Urine pH 6.0 (5.0-9.0) Urine Specific [place] 1.027 (1.001-1.035) Urine Protein Trace (Negative) Urine Ketones Negative (Negative) Urine Blood Negative /uL (Negative) Urine Nitrite Negative (Negative) Urine Bilirubin Negative (Negative) Urine Urobilinogen Normal mg/dL (Negative) Urine Leukocyte Esterase 3+ /uL (Negative) Urine RBC 5 /hpf (0 - 4) Urine Microscopic WBC 30 /HPF (0-5) Urine Squamous Epithelial Cells Few /hpf (<5) Urine Bacteria Few /hpf (None Seen) Urine Glucose Normal mg/dL (Normal) Other Laboratory Tests 11/14/24 06:33 Brief Hx & Hospital Course: 84-year-old female who is here for mechanical fall and diarrhea found to have recurrent falls as well as UTI. Patient was treated with the IV antibiotics. Patient's gastroenteritis has been resolved. Patient also complaining of left frozen shoulder outpatient follow up with the physical therapy. Patient is being discharged under stable condition. Patient's discharge health today for MRI C-spine to make sure there is no acute fracture. r Condition at Discharge: Stable Final Diagnosis/Problems List 84-year-old female who is here for mechanical fall and diarrhea found to have 1. Recurrent falls 2. Urinary tract infection 3. Nausea and vomiting diarrhea likely gastroenteritis resolved 4. Hypokalemia 5. Left shoulder fall with a decreased range of motion suspect frozen shoulder Discharge Disposition: Home with Health Services [facility] Discharge Will this Physician continue t: No Discharge Instruct/Medications Diet: Cardiac 2g Na,low cholest Activity: No Restrictions, As Tolerated Follow Up/Referral: Follow up with the PCP in 1-2 weeks follow up with the outpatient physical therapy. Medications: Resume home medications. Continued Medications: Alendronate Sodium (Alendronate Sodium) 70 Mg Tab 1 TAB PO QWEEKLY for 84 Days, #12 Atorvastatin Calcium (Atorvastatin Calcium) 40 Mg Tab 1 TAB PO DAILY for 90 Days, #90 Cholecalciferol (Vitamin D3) 5,000 Unit Cap 1 CAP PO DAILY for 30 Days, #30 Cyanocobalamin (B-12) 5,000 Mcg Sub 1 TAB SL DAILY for 30 Days, #30 Folic Acid (Folic Acid) 1 Mg Tab 1 TAB PO DAILY for 30 Days, #30 Hctz (Hydrochlorothiazide) 25 Mg Tab 1 TAB PO DAILY for 90 Days, #90 Hydroxyzine Hcl (Hydroxyzine Hcl) 25 Mg Tab 1 TAB PO Q8HPRN PRN for PRUPRITIS, UNSPECIFIED for 90 Days, #270 Magnesium Oxide (Magnesium Oxide) 400 Mg Tab 1 TAB PO DAILY PRN for HYPOMAGNESEMIA for 30 Days, #30 Meloxicam (Meloxicam) 7.5 Mg Tab 1 TAB PO DAILY for 90 Days, #90 Omeprazole (Omeprazole Dr) 20 Mg Cap 1 CAP PO QAM for 30 Days, #30 Potassium Chloride (Klor-Con M20) 20 Meq Tab 1 TAB PO BID for 90 Days, #180 Scheduled Alendronate Sodium (Alendronate Sodium), 1 TAB PO QWEEKLY, (Reported) Atorvastatin Calcium (Atorvastatin Calcium), 1 TAB PO DAILY, (Reported) Cephalexin (Keflex Capsule), 1 CAP PO QID Cholecalciferol (Vitamin D3), 1 CAP PO DAILY, (Reported) Cyanocobalamin (B-12), 1 TAB SL DAILY, (Reported) Folic Acid (Folic Acid), 1 TAB PO DAILY, (Reported) Hctz (Hydrochlorothiazide), 1 TAB PO DAILY, (Reported) Meloxicam (Meloxicam), 1 TAB PO DAILY, (Reported) Omeprazole (Omeprazole Dr), 1 CAP PO QAM, (Reported) Potassium Chloride (Klor-Con M20), 1 TAB PO BID, (Reported) Scheduled PRN Hydroxyzine Hcl (Hydroxyzine Hcl), 1 TAB PO Q8HPRN PRN for PRUPRITIS, UNSPECIFIED, (Reported) Magnesium Oxide (Magnesium Oxide), 1 TAB PO DAILY PRN for HYPOMAGNESEMIA, (Reported) Discharge Statement: "Patient was advised to return to the ER or call 911 if any headaches, dizziness, shortness of breath, chest pain, abdominal pain, bleeding, fevers, or worsening of medical condition. Patient was counseled about treatment plan, medications, possible side effects, patientverbalized understanding. All questions were answered to the best of my ability. This discharge took greater then 30 minutes in planning, reviewing documentation, counseling the patient, and discussing with other team members." ASSESSMENT ASSESSMENT Assessment 84-year-old female who is here for mechanical fall and diarrhea found to have 1. Recurrent falls 2. Urinary tract infection 3. Nausea and vomiting diarrhea likely gastroenteritis resolved 4. Hypokalemia 5. Left shoulder fall with a decreased range of motion suspect frozen shoulder Date of Service: Nov 14, 2024 Billing Provider: ABRAM COKER MD Common Visit Codes: 97038-FLY/OBS DISCH DAY >30min ABRAM COKER MD Nov 14, 2024 17:06
[2024-11-15] VITALS (7 sets, daily range): BP systolic 108–163; BP diastolic 63–99; PULSE 62–89; RESP 18–20; TEMP 36.7; O2SAT 96–99
--- NOTE | 2024-11-15 11:45 | DVH ---
CHEST RADIOGRAPH Indication: per radiology in order to do mri of neck Technique: XY CHEST XRAY 1 VIEW COMPARISON: 11/11/2024 CT abdomen pelvis FINDINGS: The cardiac silhouette is enlarged. Hiatal hernia The lungs demonstrate bilateral patchy airspace opa cities. The pulmonary vasculature is prominent. There is no pleural effusion. There is no pneumothora x. There are severe degenerate changes of the bilateral shoulders. IMPRESSION: Cardiomegaly with pulmonary vascular congestion and bilateral patchy airspace opacities. Hiatal hernia.
--- NOTE | 2024-11-15 13:55 | DVH ---
PROCEDURE: MRI CERVICAL WO CONTRAST Indication: C1 fracture COMPARISON: CT CERVICAL WITHOUT CONTRAST on DOS: 11/11/24 TECHNIQUE: Multiplanar multisequence images of the the cervical spine are obtained. FINDINGS: Cervical heights maintained. Severe multilevel disc space narrowing. 4 mm anterolisthesis C3 upon C4 . No prevertebral edema. Atlantooccipital, atlantoaxial articulations intact. C2-3: Small disc osteophyte complex. No spinal canal, neural foraminal stenosis. C3-4: Large disc osteophyte complex. Narrowing of the ventral and dorsal CSF spaces. Thecal sac pratik ures 9 mm AP. Mild spinal canal stenosis. Moderate bilateral neural foraminal stenosis. C4-5: Large disc osteophyte complex narrowing ventral and dorsal CSF spaces. Thecal sac measures 9 m m AP. Mild spinal canal stenosis. Moderate to severe left and [id number] right neural foramina l stenosis. C5-6: Large disc osteophyte complex narrowing ventral and dorsal CSF spaces. Thecal sac measures 10 mm AP. No spinal canal stenosis. Moderate bilateral neural foraminal stenosis. C6-7: Small disc osteophyte complex. No spinal canal stenosis. Mild left and [id number] right n eural foraminal stenosis. C7-T1: No spinal canal, neural foraminal stenosis IMPRESSION: Severe cervical degenerative disc disease. Mild spinal canal stenosis C3-4 and C4-5. Multilevel neural foraminal stenosis as described above.
[2024-11-15] MEDS ORDERED: CEPH250C PO (16:08)
--- NOTE | 2024-11-15 16:10 | DVHPN2 ---
Subjective Patient is complaining of left shoulder decreased range of motion likely frozen shoulder. Yesterday discharge was held because of questionable C1 fracture on the CT C-spine, MRI spine shows no evidence of any acute fracture. Changes from previous H/P or p: No Changes Eyes: No Pain, No Vision change, No Conjunctivae inflammation, No Eyelid inflammation, No Other, No Redness ENT: No Ear pain, No Ear discharge, No Nose pain, No Nose discharge, No Nose congestion, No Mouth pain, No Mouth swelling, No Throat pain, No Throat swelling, No Other Cardiovascular: No Chest Pain, No Palpitations, No Orthopnea, No Paroxysmal Noc. Dyspnea, No Edema, No Lt Headedness, No Other Respiratory: No Cough, No Dry, No Shortness of breath, No SOB with excertion, No Wheezing, No Hemoptysis, No Pleuritic Pain, No Sputum, No Other Gastrointestinal: Nausea, Vomiting; No Abdominal Pain; Diarrhea; No Constipation, No Melena, No Hematochezia, No Other Genitourinary: No Dysuria, No Frequency, No Incontinence, No Hematuria, No Retention, No Other Musculoskeletal: No other, No neck pain, No shoulder pain, No arm pain, No back pain, No hand pain, No leg pain, No foot pain Skin: No Rash, No Lesions, No Jaundice, No Bruising, No Other Objective Vitals Vital Signs Date Time Temp Pulse Resp B/P (MAP) Pulse Ox O2 Delivery O2 Flow Rate FiO2 11/15/24 13:00 98.0 66 19 134/76 (95) 96 98.0 11/15/24 08:00 Room Air* 0 21 Intake/Output Intake and Output 11/15/24 06:59 Intake Total 1650 ml Balance 1650 ml Intake Oral 1600 ml IV Total 50 ml # Voids 7 # Bowel Movements 2 Exam HEENT pupils are reactive Neck is supple CV is S1-S2 regular rate and rhythm Respiratory are clear GI positive bowel sound 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 Medications Current Medications Medications Dose Ordered Sig/Bakari Route Start Time Stop Time Status Last Admin Dose Admin Atorvastatin Calcium 20 mg HS PO 11/12/24 22:00 11/14/24 21:01 20 MG Sodium Chloride 1,000 ml @ 60 mls/hr [id number] IV 11/11/24 22:45 11/15/24 11:41 60 MLS/HR Acetaminophen/ Hydrocodone Bitart 1 tab Q4HP PRN PO 11/11/24 22:45 Ondansetron HCl 4 mg Q4HP PRN IV 11/11/24 22:45 Docusate Sodium 100 mg BIDPRN PRN PO 11/11/24 22:45 Acetaminophen 650 mg Q6HP PRN PO 11/11/24 22:45 11/14/24 00:42 650 MG Alendronate Sodium 70 mg Q7D@0600 PO 11/18/24 06:00 Nitroglycerin 0.4 mg Q5MINP PRN SL 11/11/24 23:45 Morphine Sulfate 2 mg Q30M PRN IV 11/11/24 23:45 Ceftriaxone Sodium 50 ml @ 100 mls/hr DAILY@09 IV 11/13/24 09:00 11/15/24 10:04 100 MLS/HR Laboratory Results Laboratory Tests 11/14/24 06:33 Urinalysis Test 11/11/24 20:13 Urine Color Yellow (Yellow) Urine Clarity Clear (Clear) Urine pH 6.0 (5.0-9.0) Urine Specific [place] 1.027 (1.001-1.035) Urine Protein Trace (Negative) H Urine Ketones Negative (Negative) Urine Blood Negative /uL (Negative) Urine Nitrite Negative (Negative) Urine Bilirubin Negative (Negative) Urine Urobilinogen Normal mg/dL (Negative) Urine Leukocyte Esterase 3+ /uL (Negative) Urine RBC 5 /hpf (0 - 4) Urine Microscopic WBC 30 /HPF (0-5) H Urine Squamous Epithelial Cells Few /hpf (<5) Urine Bacteria Few /hpf (None Seen) H Urine Glucose Normal mg/dL (Normal) Microbiology Microbiology Date/Time Source Procedure Growth Status 11/11/24 22:43 Blood Blood Culture - Preliminary NO GROWTH AFTER 72 HOURS OF INCUBATION. Resulted 11/11/24 20:13 Voided Urine Urine Culture - Final Complete Assessment/Plan Assessment/Plan 84-year-old female who is here for mechanical fall and diarrhea found to have 1. Recurrent falls with a C1 fracture at cervical spine with CT evidence, MRI C- spine shows no evidence of acute fracture 2. Urinary tract infection 3. Nausea and vomiting diarrhea likely gastroenteritis resolved 4. Hypokalemia 5. Left shoulder fall with a decreased range of motion suspect frozen shoulder -x-ray shoulder two views, pain meds as needed -check vitamin B12 folic acid TSH -diet as tolerated, replace electrolytes, PT evaluation and treatment, discharge plan drain Plan discussed with: Patient My Orders Orders - ABRAM COKER MD Procedure Category Date Status Time Discharge DISCHARGE 11/14/24 Transmitted 17:04 * Digital Camera Technician CONS 11/14/24 Transmitted Consult Chest Xray 1 View XY 11/15/24 Resulted 10:53 Cervical Wo Contrast MRI 11/14/24 Resulted 17:06 Consultdr. Claude CONS 11/15/24 Transmitted Coulter(Spine) 14:14 Date of Service: Nov 15, 2024 Billing Provider: ABRAM COKER MD Common Visit Codes: [id number] INP/OBS CARE(MOD) ABRAM COKER MD Nov 15, 2024 16:10
[2024-11-18] MEDS ORDERED: ALENDRONATE SODIUM 10 MG TAB PO SCH (06:00)
== END 2024-11-15 18:28 | disposition home health service (06) | DRG 690 ==
LOC: ER 19:22 → OVERFLOW 23:38 → TELE-CENTR 11-12 03:52
PROVIDERS: ADMIT Internal Medicine; ATTEND Internal Medicine
DX: N30.00 Acute cystitis without hematuria (principal); S12.000A Unspecified displaced fracture of first cervical vertebra, initial encounter for closed fracture; A08.4 Viral intestinal infection, unspecified; E87.6 Hypokalemia; E86.0 Dehydration; M75.02 Adhesive capsulitis of left shoulder; R29.6 Repeated falls; E78.5 Hyperlipidemia, unspecified; I10 Essential (primary) hypertension; W01.0XXA Fall on same level from slipping, tripping and stumbling without subsequent striking against object, initial encounter; Z88.8 Allergy status to other drugs, medicaments and biological substances; Y93.89 Activity, other specified; Y92.89 Other specified places as the place of occurrence of the external cause; Y99.8 Other external cause status
CPT/HCPCS: 36415; 70450; 71045; 72125; 72141; 73030; 74176; 80048; 80053; 81001; 82607; 82746; 83605; 83690; 83735; 84443; 85025; 87040; 87086; 97110; 97116; 97163; 97530; 99291; G0378; J2405; J3480